=== PATIENT | male | born 1950 ===

== ENCOUNTER 2021-10-21 08:57 | Day surgery (SDC) | payer MEDICARE ==
[~2021-10-21] VITALS: Ht 175.3 cm; Wt 103.8 kg
[2021-10-21] MEDS ORDERED: LIPITOR 40MG TA40 MG PO (09:50)
[2021-10-21] MEDS ORDERED: PLAVIX 75MG TAB75 MG PO (09:51)
[2021-10-21] MEDS ORDERED: NORVASC 10MG10 MG PO (09:52)
[2021-10-21] MEDS ORDERED: D3-5050000 IU PO (09:53)
[2021-10-21] MEDS ORDERED: ASPIRIN E.C. 8181 MG PO (09:53)
[2021-10-21 10:17] VITALS: BP 133/77; PULSE 71; TEMP 97.9
[2021-10-21 11:35] VITALS: BP 111/75; PULSE 62
--- NOTE | 2021-10-21 11:35 | NUR ---
Pt to [facility] 5 via cart. Pt awake and alert. Ambulates to recliner with stand by assistance. Pt denies pain or nausea. Muffin and coffee given per pt request. Will continue to monitor. Call light within reach.
[2021-10-21 11:50] VITALS: BP 113/69; PULSE 56
--- NOTE | 2021-10-21 11:50 | NUR ---
Pt tolerating po food and fluids without difficulties. Denies needs. Call light within reach.
[2021-10-21 12:05] VITALS: BP 123/66; PULSE 62
--- NOTE | 2021-10-21 12:05 | NUR ---
Discharge instructions reviewed. Pt voices understanding. IV site discontinued with all parts intact. Pt up to dress. Call light within reach.
--- NOTE | 2021-10-21 12:20 | NUR ---
Pt escorted to private car via wheel chair. Pt accompanied home by his son.
== END 2021-10-21 12:20 | disposition home or self-care (01) ==
LOC: SDCO 08:57
DX: K21.9 Gastro-esophageal reflux disease without esophagitis (principal); K64.1 Second degree hemorrhoids; R10.9 Unspecified abdominal pain; K59.09 Other constipation; Z79.82 Long term (current) use of aspirin; Z79.899 Other long term (current) drug therapy; Z87.891 Personal history of nicotine dependence; Z79.02 Long term (current) use of antithrombotics/antiplatelets; Z80.0 Family history of malignant neoplasm of digestive organs
CPT/HCPCS: J2704; J7030

== ENCOUNTER → 2022-06-30 | Outpatient (CLI) | payer MEDICARE, MEDICAID ==
--- NOTE | 2022-06-16 09:37 | NUR ---
PT IS ON PLAVIX AND WAS NOT INSTRUCTED TO STOP FOR 5 DAYS PRIOR. GAVE INSTRUCTIONS TO PT AND TRANSFERED TO SCHEDULING.
[~2022-06-30] VITALS: Ht 175.3 cm; Wt 102.0 kg
[~2022-06-30] MED LIST: ASPIRIN E.C. 8181 MG PO; D3-5050000 IU PO; FLOMAX 0.40.4 MG/CAP PO; LIPITOR 40MG TA40 MG PO; NORVASC 10MG10 MG PO; PLAVIX 75MG TAB75 MG PO; PRILOSEC 20MG20 MG PO; ULTRAM 50MG TAB50 MG PO
[2022-06-30 13:06] VITALS: BP 163/80; PULSE 78; TEMP 97.8
[2022-06-30 14:05] VITALS: BP 159/84; PULSE 75
== END ==
LOC: COL.RAD 06-20 12:30
DX: M48.02 Spinal stenosis, cervical region (principal)
CPT/HCPCS: J1100